=== PATIENT | male | born 1945 | race Caucasian/White ===

== ENCOUNTER → 2016-07-29 | Outpatient (CLI) | payer OTHER, MEDICARE ==
[~2016-07-29] MED LIST: IOPAMIDOL (ISOVUE-370) 150 ML BTL IV ONE
[2016-07-29 10:55] LABS: GLOMERULAR FILTRATION RATE > 60
== END ==
LOC: FIMAGING 10:03
PROVIDERS: ATTEND Emergency Medicine
DX: I71.4 Abdominal aortic aneurysm, without rupture (principal)
CPT/HCPCS: 71275; Q9967

== ENCOUNTER → 2016-11-03 | Outpatient (CLI) | payer OTHER, MEDICARE | LOC: BHFA 14:00 | PROVIDERS: ATTEND Internal Medicine Cardiovascular Disease | DX: Z01.810 Encounter for preprocedural cardiovascular examination (principal); R06.02 Shortness of breath | CPT/HCPCS: 78452; 93017; A9500 ==

== ENCOUNTER → 2016-11-11 | Outpatient (CLI) | payer OTHER, MEDICARE | LOC: FIMAGING 08:12 | PROVIDERS: ATTEND Internal Medicine | DX: I51.7 Cardiomegaly (principal) ==

== ENCOUNTER → 2017-03-01 | Outpatient (CLI) | payer OTHER, MEDICARE | LOC: FIMAGING 18:12 | PROVIDERS: ATTEND Emergency Medicine | DX: S29.9XXA Unspecified injury of thorax, initial encounter (principal) ==

== ENCOUNTER → 2017-06-11 | Outpatient (CLI) | payer OTHER, MEDICARE ==
[~2017-06-11] MED LIST changes: +IOPAMIDOL (ISOVUE-300) 100 ML BTL ONE; -IOPAMIDOL (ISOVUE-370) 150 ML BTL IV ONE
== END ==
LOC: FIMAGING 16:56
PROVIDERS: ATTEND Emergency Medicine
DX: R10.9 Unspecified abdominal pain (principal); K59.00 Constipation, unspecified; I70.0 Atherosclerosis of aorta; M48.061 Spinal stenosis, lumbar region without neurogenic claudication; M43.16 Spondylolisthesis, lumbar region; Z96.89 Presence of other specified functional implants
CPT/HCPCS: 74177; Q9967

== ENCOUNTER → 2017-08-06 | Outpatient (CLI) | payer OTHER, MEDICARE | LOC: FIMAGING 07:19 | PROVIDERS: ATTEND Internal Medicine Gastroenterology | DX: Z45.2 Encounter for adjustment and management of vascular access device (principal) ==

== ENCOUNTER → 2018-01-02 | Outpatient (CLI) | payer OTHER, MEDICARE ==
[~2018-01-02] MED LIST changes: +IOPAMIDOL (ISOVUE 370) 100 ML BTL IV ONE; -IOPAMIDOL (ISOVUE-300) 100 ML BTL ONE
== END ==
LOC: FIMAGING 09:33
PROVIDERS: ATTEND Psychiatry & Neurology Neurology
DX: G31.9 Degenerative disease of nervous system, unspecified (principal); R90.82 White matter disease, unspecified; G08 Intracranial and intraspinal phlebitis and thrombophlebitis; M48.02 Spinal stenosis, cervical region; M53.82 Other specified dorsopathies, cervical region
CPT/HCPCS: 70450; 70496; 72125; Q9967; 82565-PO

== ENCOUNTER → 2018-02-21 | Outpatient (CLI) | payer OTHER, MEDICARE | LOC: FIMAGING 10:03 | PROVIDERS: ATTEND Internal Medicine Gastroenterology | DX: Z13.6 Encounter for screening for cardiovascular disorders (principal); Z96.89 Presence of other specified functional implants ==

== ENCOUNTER 2018-06-10 08:43 | Day surgery (SDC) | payer OTHER, MEDICARE ==
[2018-06-10] MEDS ORDERED: BUPIVACAINE 0.5% 30 ML SDV ONE (08:53)
[2018-06-10] MEDS ORDERED: ceFAZolin 2 GM/DEXTROSE 100 ML IV ONE (09:02)
[2018-06-10] MEDS ORDERED: LIDOCAINE 1% 2 ML INJ ID PRN (09:02)
[2018-06-10] MEDS ORDERED: LR 1,000 ML IV ONE (09:02)
--- NOTE | 2018-06-10 09:39 | PDHPUP ---
History & Physical Update H&P update statement: This history and physical update is based on an assessment of the patient which was completed after admission or registration (within 24 hours), but prior to the surgery/procedure. H&P update: H&P reviewed & patient examined, no change in patient's condition since H&P completed
[2018-06-10] MEDS ORDERED: MIDAZOLAM 2 MG/2 ML VIAL IVP ONE (09:55)
--- NOTE | 2018-06-10 10:00 | PDANEPAE ---
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 - Pulmonary History Hx COPD: No Hx Asthma/Reactive Airway Disease: No Hx Recent Upper Respiratory Infection: No Hx Oxygen in Use at Home: Yes O2 in Use at Home (L/minute): 2.L Hx Sleep Apnea: Yes Sleep Apnea Screening Result - Last Documented: Positive Pulmonary History Comment: MATI uses CPAP - Neurologic History Hx Cerebrovascular Accident: No Hx Seizures: No Hx Dementia: No - Endocrine History Hx Diabetes: No - Renal History Hx Renal Disorders: No - Liver History Hx Hepatic Disorders: No - Neurological & Psychiatric Hx Hx Neurological and Psychiatric Disorders: No - Cancer History Hx Cancer: No - Congenital Disorder History Hx Congenital Disorders: No - GI History GERD: no Hx Gastrointestinal Disorders: No - Other Health History Other Health History: GLAUCOMA. Hypercoagulable disorder - on Xarelto. h/o portal vein thrombosis, PE's - Chronic Pain History Chronic Pain: No - Surgical History Prior Surgeries: colonoscopy. none in last 5 yrs. MVR 1992 ANE Review of Systems Review of Systems: - Exercise capacity METS (RN): 5 METS ANE Patient History - Allergies Allergies/Adverse Reactions: No Known Allergies Allergy (Verified 06/09/18 16:47) - Home Medications Home medications: home medication list seen and reviewed Home Medications: Brimonidine 0.1% [ALPHAGAN P 0.1% (*)] 06/20/15 [Last Taken 06/09/18] Cholecalciferol (Vitamin D3) 06/09/18 [Last Taken 06/07/18] Human Growth Hormone 06/09/18 [Last Taken Unknown] Multivitamin 06/09/18 [Last Taken 06/08/18] Polyethylene Glycol 3350 [Miralax 17 gm (*)] 06/09/18 [Last Taken 06/05/18] Testosterone 06/09/18 [Last Taken 06/05/18] Xanax 06/09/18 [Last Taken 06/09/18] Xarelto 06/09/18 [Last Taken 06/08/18] - NPO status NPO Status: no food or drink >8 hours NPO Since - Liquids (Date): 06/10/18 NPO Since - Liquids (Time): 07:00 NPO Since - Solids (Date): 06/09/18 NPO Since - Solids (Time): 19:00 - Anes Hx Anes Hx: no prior problems - Smoking Hx Smoking Status: Former smoker - Family Anes Hx Family Hx Anesthesia Complications: none ANE Labs/Vital Signs - Vital Signs Vital Signs: reviewed preoperatively; see RN documention for details Blood Pressure: 130/92 Heart Rate: 81 Respiratory Rate: 18 O2 Sat (%): 93 Height: 193.04 cm Weight: 95.254 kg ANE Physical Exam - Airway Neck exam: FROM Mallampati Score: Class 3 Mouth exam: normal dental/mouth exam, small mouth opening - Pulmonary Pulmonary: clear to auscultation - Cardiovascular Cardiovascular: regular rate and rhythym - ASA Status ASA Status: III ANE Anesthesia Plan Anesthesia Plan: MAC
[2018-06-10] MEDS ORDERED: PROPOFOL/EMULSION 500 MG/50 ML BOTTLE IV ONE (10:05)
[2018-06-10] MEDS ORDERED: fentaNYL 100 MCG/2 ML INJ ONE (10:05)
[2018-06-10] MEDS ORDERED: LIDOCAINE 1% 300 MG/30 ML SDV ONE (10:17)
[2018-06-10] MEDS ORDERED: NA BICARBONATE 50 MEQ/50 ML VIAL ONE (10:18)
[2018-06-10] MEDS ORDERED: LIDOCAINE 2% 100 MG/5 ML SYR ONE (10:31)
[2018-06-10] MEDS ORDERED: DIAZEPAM 5 MG/ML 1 ML SYR IVP PRN (10:45)
[2018-06-10] MEDS ORDERED: fentaNYL 100 MCG/2 ML INJ IVP PRN (10:45)
[2018-06-10] MEDS ORDERED: LR 500 ML IV PRN (10:45)
[2018-06-10] MEDS ORDERED: HYDROCODONE/APAP 5/325 TAB PO PRN (10:45)
[2018-06-10] MEDS ORDERED: LABETALOL HCL 5 MG/ML 20 ML MDV IVP PRN (10:45)
[2018-06-10] MEDS ORDERED: MEPERIDINE 25 MG/0.5 ML AMP IVP PRN (10:45)
[2018-06-10] MEDS ORDERED: NALOXONE HCL 0.4 MG/ML INJ IVP PRN (10:45)
[2018-06-10] MEDS ORDERED: oxyCODONE IR 5 MG TAB PO PRN (10:45)
[2018-06-10] MEDS ORDERED: ONDANSETRON 4 MG/2 ML VIAL IVP PRN (10:45)
[2018-06-10] MEDS ORDERED: ACETAMINOPHEN 500 MG TAB PO PRN (10:45)
[2018-06-10] MEDS ORDERED: ALBUTEROL 3 ML DEYVIAL IH PRN (10:45)
[2018-06-10] MEDS ORDERED: METOCLOPRAMIDE 10 MG/2 ML VIAL IVP PRN (10:45)
--- NOTE | 2018-06-10 10:45 | POSTANESTH ---
Post Anesthetic Evaluation Cardiovascular Status: Normal, Stable Respiratory Status: Normal, Stable Level of Consciousness/Mental Status: Can Participate in Eval Pain Control: Adequate, Prn Tx Ordered Nausea/Vomiting Control: Adequate, Prn Tx Ordered Complications Possibly Related to Anesthesia: None Noted
--- NOTE | 2018-06-10 11:05 | POSTOPPROG ---
Post Op Note Date of Operation: 06/10/18 Surgeon: Edson Jean Oncology Physician: Benita Anesthesiologist: Karla Anesthesia: IV Sedation Pre-op Diagnosis: Recurrent abdominal wall abscess Post-op Diagnosis: same Indication: same, obtain definitive diagnosis Procedure: Abdominal wall abscess excision, cultures Findings: indurated tissue, additional pocket found laterally Inf/Abcess present in the surg proc area at time of surgery?: Yes Depth: Deep Incisional (Fascial) EBL: Minimal Specimen(s): Tissue for culture- afb Tissue for culture- fungal Tissue for PCR testing ([facility]) Tissue for pathology- permanent
[2018-06-10] MEDS ORDERED: ACETAMINOPHEN 325 MG TAB ONE (11:26)
[2018-06-10] MEDS ORDERED: ACETAMINOPHEN 500 MG TAB ONE (11:28)
[2018-06-10] MEDS ORDERED: oxyCODONE IR 5 MG TAB ONE (12:19)
[2018-06-10 12:23] VITALS: BP 145/90
--- NOTE | 2018-06-11 02:50 | GOP ---
DATE OF OPERATION: 06/10/2018 SURGEON: Edson Jean MD PREOPERATIVE DIAGNOSIS: Recurrent abdominal wall abscess. POSTOPERATIVE DIAGNOSIS: Recurrent abdominal wall abscess. PROCEDURE PERFORMED: Wide excision of abdominal wall mass. FINDINGS: PERSISTENT INFECTIOUS POCKET DESCRIPTION OF PROCEDURE: The patient was taken to the operating room where he received satisfactory IV sedation monitored anesthesia care by Dr. Acosta. He was placed in a supine position, prepped and draped in the usual sterile fashion. An elliptical skin incision was made around the drainage site and a full- thickness excision was done down to the fascia. However, the infection tract extended laterally underneath the remainder of the old incision and this too was then excised and completely removed. Hemostasis was assured with electrocautery. The wound was infiltrated with 0.5% Marcaine. The wound was then packed with some iodoform gauze with 1 single subcuticular [id number] suture to approximate the skin edges in the middle of the wound. He tolerated the procedure well. He was taken to the recovery room in good condition. There were no complications. Blood loss was negligible. Cultures were sent. The specimen was sent for special TB tests at the [facility]. /[id number]/MODL MTDD
== END 2018-06-10 12:43 | disposition home or self-care (01) ==
LOC: FSGY 08:43
PROVIDERS: ATTEND Surgery
PROC: 0JB80ZX Excision of Abdomen Subcutaneous Tissue and Fascia, Open Approach, Diagnostic (ICD-10-PCS; principal; 2018-06-10 10:15)
DX: L02.211 Cutaneous abscess of abdominal wall (principal); B99.9 Unspecified infectious disease; I71.2 Thoracic aortic aneurysm, without rupture; M48.02 Spinal stenosis, cervical region; D68.59 Other primary thrombophilia; G47.33 Obstructive sleep apnea (adult) (pediatric); Z95.2 Presence of prosthetic heart valve; Z86.711 Personal history of pulmonary embolism; Z79.01 Long term (current) use of anticoagulants
CPT/HCPCS: J2001; J2250; J2704; J3010

== ENCOUNTER → 2018-09-09 | Outpatient (CLI) | payer OTHER, MEDICARE | LOC: FIMAGING 10:33 | PROVIDERS: ATTEND Emergency Medicine | DX: J44.9 Chronic obstructive pulmonary disease, unspecified (principal); R05 Cough; Z95.2 Presence of prosthetic heart valve ==

== ENCOUNTER → 2018-09-19 | Outpatient (CLI) | payer OTHER, MEDICARE | LOC: FIMAGING 15:24 | PROVIDERS: ATTEND Emergency Medicine | DX: I70.0 Atherosclerosis of aorta (principal); J98.4 Other disorders of lung ==